=== PATIENT | male | born 1960 | race Caucasian/White ===

== ENCOUNTER → 2016-04-06 | Outpatient (CLI) | payer BC, OTHER ==
[~2016-04-06] MED LIST: AMLO-114 PO; KFZAV1 IV
[2016-04-06 18:20] LABS: HEMATOCRIT 41.1 % (42-52); MEAN CELL VOLUME 93.6 fL (80-100); MEAN CORPUSCULAR HEMOGLOBIN 30.8 pg (25-34); MEAN CORPUSCULAR HGB CONC 32.8 g/dl (32-36); MEAN PLATELET VOLUME 10.2 fL (7.4-10.4); PLATELET COUNT 288 K/uL (130-400); RED BLOOD COUNT 4.39 M/uL (4.7-6.1); WHITE BLOOD COUNT 6.52 K/uL (4.8-10.8)
[2016-04-06 18:43] LABS: ALT/SGPT 34 U/L (12-78); BLOOD UREA NITROGEN 18 mg/dl (7-18); BUN/CREATININE RATIO 22.3 (10-20); CALCIUM 9.1 mg/dl (8.5-10.1); CARBON DIOXIDE 28 mmol/L (21-32); CHLORIDE 103 mmol/L (98-107); CREATININE 0.81 mg/dl (0.60-1.40); GLUCOSE 76 mg/dl (70-99); POTASSIUM 4.3 mmol/L (3.5-5.1); SODIUM 142 mmol/L (136-145)
[2016-04-06 18:46] LABS: ALB/GLOB RATIO 0.9 (0.9-2); ALKALINE PHOSPHATASE 60 U/L (45-117); AST/SGOT 18 U/L (15-37)
== END | disposition home or self-care (01) ==
LOC: C.LABSPEC 17:52
PROVIDERS: ATTEND Orthopaedic Surgery
DX: M86.461 Chronic osteomyelitis with draining sinus, right tibia and fibula (principal)

== ENCOUNTER → 2016-04-12 | Outpatient (CLI) | payer BC, OTHER ==
[2016-04-12 17:53] LABS: BASO % 0.5 %; BASO ABS # 0.03 K/uL (0-0.2); COMPLETE YES; EOS % 5.5 %; HEMATOCRIT 39.8 % (42-52); IG% 0.2 %; LYMPH % 18.6 %; LYMPH ABS # 1.16 K/uL (1.2-3.4); MEAN CELL VOLUME 93.2 fL (80-100); MEAN CORPUSCULAR HEMOGLOBIN 30.2 pg (25-34); MEAN CORPUSCULAR HGB CONC 32.4 g/dl (32-36); MEAN PLATELET VOLUME 10.4 fL (7.4-10.4); MONO % 10.3 %; NEUT % 64.9 %; PLATELET COUNT 267 K/uL (130-400); RED BLOOD COUNT 4.27 M/uL (4.7-6.1); WHITE BLOOD COUNT 6.23 K/uL (4.8-10.8)
[2016-04-12 19:17] LABS: ALKALINE PHOSPHATASE 54 U/L (45-117); ALT/SGPT 29 U/L (12-78); AST/SGOT 19 U/L (15-37); BLOOD UREA NITROGEN 15 mg/dl (7-18); BUN/CREATININE RATIO 17.6 (10-20); CALCIUM 8.8 mg/dl (8.5-10.1); CARBON DIOXIDE 29 mmol/L (21-32); CHLORIDE 102 mmol/L (98-107); CREATININE 0.86 mg/dl (0.60-1.40); GLUCOSE 120 mg/dl (70-99); POTASSIUM 3.9 mmol/L (3.5-5.1); SODIUM 140 mmol/L (136-145)
[2016-04-12 19:20] LABS: C-REACTIVE PROTEIN 0.98 mg/dl (0-0.29)
== END | disposition home or self-care (01) ==
LOC: C.LABSPEC 09:32
PROVIDERS: ATTEND Internal Medicine Infectious Disease
DX: T84.69XA Infection and inflammatory reaction due to internal fixation device of other site, initial encounter (principal); X58.XXXA Exposure to other specified factors, initial encounter

== ENCOUNTER → 2016-04-19 | Outpatient (CLI) | payer BC, OTHER ==
[2016-04-19 12:32] LABS: BASO % 0.6 %; BASO ABS # 0.04 K/uL (0-0.2); COMPLETE YES; EOS % 6.8 %; HEMATOCRIT 43.4 % (42-52); IG% 0.2 %; LYMPH % 23.7 %; LYMPH ABS # 1.51 K/uL (1.2-3.4); MEAN CELL VOLUME 93.7 fL (80-100); MEAN CORPUSCULAR HEMOGLOBIN 30.5 pg (25-34); MEAN CORPUSCULAR HGB CONC 32.5 g/dl (32-36); MONO % 11.9 %; NEUT % 56.8 %; PLATELET COUNT 252 K/uL (130-400); RED BLOOD COUNT 4.63 M/uL (4.7-6.1); WHITE BLOOD COUNT 6.37 K/uL (4.8-10.8)
[2016-04-19 13:00] LABS: ALB/GLOB RATIO 0.9 (0.9-2); ALKALINE PHOSPHATASE 63 U/L (45-117); ALT/SGPT 21 U/L (12-78); AST/SGOT 26 U/L (15-37); BLOOD UREA NITROGEN 16 mg/dl (7-18); BUN/CREATININE RATIO 18.7 (10-20); C-REACTIVE PROTEIN 0.98 mg/dl (0-0.29); CALCIUM 8.7 mg/dl (8.5-10.1); CARBON DIOXIDE 30 mmol/L (21-32); CHLORIDE 103 mmol/L (98-107); CREATININE 0.83 mg/dl (0.60-1.40); GLUCOSE 83 mg/dl (70-99); SODIUM 140 mmol/L (136-145)
== END | disposition home or self-care (01) ==
LOC: C.LABSPEC 12:07
PROVIDERS: ATTEND Internal Medicine Infectious Disease
DX: T84.69XA Infection and inflammatory reaction due to internal fixation device of other site, initial encounter (principal); X58.XXXA Exposure to other specified factors, initial encounter

== ENCOUNTER → 2016-04-27 | Outpatient (CLI) | payer BC, OTHER ==
[2016-04-27 17:32] LABS: BASO % 0.6 %; BASO ABS # 0.03 K/uL (0-0.2); COMPLETE YES; EOS % 6.8 %; HEMATOCRIT 40.7 % (42-52); IG% 0.2 %; LYMPH % 20.8 %; LYMPH ABS # 1.01 K/uL (1.2-3.4); MEAN CELL VOLUME 94.4 fL (80-100); MEAN CORPUSCULAR HEMOGLOBIN 30.2 pg (25-34); MEAN CORPUSCULAR HGB CONC 31.9 g/dl (32-36); MEAN PLATELET VOLUME 10.3 fL (7.4-10.4); MONO % 12.4 %; NEUT % 59.2 %; PLATELET COUNT 197 K/uL (130-400); RED BLOOD COUNT 4.31 M/uL (4.7-6.1); WHITE BLOOD COUNT 4.85 K/uL (4.8-10.8)
[2016-04-27 18:06] LABS: ALB/GLOB RATIO 0.9 (0.9-2); ALKALINE PHOSPHATASE 60 U/L (45-117); ALT/SGPT 22 U/L (12-78); AST/SGOT 23 U/L (15-37); BLOOD UREA NITROGEN 15 mg/dl (7-18); BUN/CREATININE RATIO 17.9 (10-20); C-REACTIVE PROTEIN 1.14 mg/dl (0-0.29); CARBON DIOXIDE 32 mmol/L (21-32); CHLORIDE 104 mmol/L (98-107); CREATININE 0.82 mg/dl (0.60-1.40); GLUCOSE 107 mg/dl (70-99); POTASSIUM 4.1 mmol/L (3.5-5.1); SODIUM 142 mmol/L (136-145)
== END | disposition home or self-care (01) ==
LOC: C.LABSPEC 07:43
PROVIDERS: ATTEND Internal Medicine Infectious Disease
DX: T84.69XA Infection and inflammatory reaction due to internal fixation device of other site, initial encounter (principal); Y83.1 Surgical operation with implant of artificial internal device as the cause of abnormal reaction of the patient, or of later complication, without mention of misadventure at the time of the procedure

== ENCOUNTER 2016-05-03 13:08 | Emergency (ER) | payer BC ==
[~2016-05-03] VITALS: Ht 177.8 cm; Wt 174.5 kg
[2016-05-03 13:10] VITALS: TEMP 36.6; Ht 177.8 cm; Wt 174.5 kg
[2016-05-03] MEDS ORDERED: KFZAV1 IV (13:45)
--- NOTE | 2016-05-03 13:52 | EMERGENCY ROOM VISIT NOTE ---
History Report prepared by Yung: Aleksandar Fletcher Under the Supervision of: Dr. Jay Romero M.D. First contact with patient: 13:43 Chief Complaint: HYPERTENSION Stated Complaint: HIGH BLOOD PRESSURE History of Present Illness The patient is a 55 year old male who presents to the Emergency Room with complaints of acute hypertension. The patient had his blood pressure checked at home by a nurse, who told him to come to the ED for hypertension. The patient otherwise feels completely fine and denies fevers, headaches, chest pain, shortness of breath, burning with urination, or diarrhea. The patient does not take medications for hypertension. He is currently on Ancef for a right lower leg infection. The patient has a PICC line. The patient has not been taking any Pseudafed. He is not a smoker. Source of History: patient Onset: today Position: other (cardiovascular) Quality: other (hypertensive) Timing: other (acute) Associated Symptoms: No SOB, No chest pain, No diarrhea, No fevers, No headache, No urinary symptoms Review of Systems See HPI for pertinent positives & negatives. A total of 10 systems reviewed and were otherwise negative. Past Medical & Surgical Medical Problems: (1) Peripherally inserted central catheter in place Family History No pertinent family history Social History Smoking Status: Former Smoker Current/Historical Medications Scheduled Amlodipine (Norvasc), 10 MG PO DAILY Cefazolin Sod (Cefazolin Sodium), 2 GM IV TID Allergies Uncoded Allergies: PENICILIN (Allergy, Unknown, 04/05/04) Physical Exam Vital Signs Date Time Temp Pulse Resp B/P Pulse Ox O2 Delivery O2 Flow Rate FiO2 05/03/16 15:18 82 20 122/76 95 05/03/16 14:17 84 22 140/91 96 Room Air 05/03/16 13:10 36.6 91 18 199/101 95 Room Air Physical Exam GENERAL: Patient is overweight appearing and in no acute distress. HEENT: No acute trauma, normocephalic atraumatic, mucous membranes moist, no nasal congestion, no scleral icterus. NECK: No stridor, no adenopathy, no meningismus, trachea is midline. LUNGS: No dyspnea. Clear to auscultation and equal bilaterally. No wheeze, no rhonchi. HEART: Regular rate and rhythm. No murmurs, rubs, gallops appreciated. ABDOMEN: Soft, nontender, bowel sounds positive, no masses appreciated, no peritonitis. BACK: No midline tenderness, no CVA tenderness EXTREMITIES: Normal motion all extremities, no cyanosis, no edema. PICC line right arm with no evidence of infection or effusion. Right leg wound dressing with bilateral leg edema. NEUROLOGIC: Alert and oriented, no acute motor or sensory deficits, no focal weakness, cranial nerves grossly intact. SKIN: No rash, no jaundice, no diaphoresis. Medical Decision & Procedures ER Provider Diagnostic Interpretation: X ray results are stated below per my interpretation and the radiologist's interpretation. SINGLE VIEW CHEST CLINICAL HISTORY: Hypertension. FINDINGS: An AP, portable, upright chest radiograph is obtained. No prior studies are available for comparison at the time of dictation. The examination is degraded by portable technique, apical positioning, large body habitus. A right PICC line is in place. The tip of the catheter projects over the SVC. The heart is top normal for projection. The pulmonary vasculature is noncongested. The lungs and pleural spaces are clear. No pneumothorax is seen. The bony thorax is grossly intact. IMPRESSION: 1. No acute cardiopulmonary abnormality. 2. A right PICC line is in place. Electronically signed by: Sunil Collado M.D. 05/03/2016 2:22 PM Dictated Date/Time: 05/03/2016 2:13 PM Laboratory Results 05/03/16 13:25 05/03/16 13:25 Test 05/03/16 13:25 Red Blood Count 4.53 M/uL (4.7-6.1) Mean Corpuscular Volume 93.8 fL (80-100) Mean Corpuscular Hemoglobin 31.1 pg (25-34) Mean Corpuscular Hemoglobin Concent 33.2 g/dl (32-36) RDW Standard Deviation 47.9 fL (36.4-46.3) RDW Coefficient of Variation 14.0 % (11.5-14.5) Mean Platelet Volume 9.7 fL (7.4-10.4) Anion Gap 6.0 mmol/L (3-11) Est Creatinine Clear Calc Drug Dose 167.5 ml/min Estimated GFR () 116.8 Estimated GFR (Non- 100.8 BUN/Creatinine Ratio 21.7 (10-20) Calcium Level 8.6 mg/dl (8.5-10.1) Troponin I < 0.015 ng/ml (0-0.045) Laboratory results as reviewed by me. Medications Administered Medications (Trade) Dose Ordered Sig/Bee Route Start Time Stop Time Status Last Admin Dose Admin Amlodipine Besylate (Norvasc Tab) 10 mg NOW ONCE PO 05/03/16 14:15 05/03/16 14:16 DC 05/03/16 14:24 10 MG ECG Indication: other (hypertension) Rate (beats per minute): 80 Rhythm: normal sinus Findings: no acute ischemic change, no ectopy ED Course 1344: The patient was evaluated in room B10. A complete history and physical exam was performed. 1415; Norvasc 10 mg PO. 1442: The patient is feeling fine. BP 140/90. 1540: The patient is feeling fine and would like to go home. Medical Decision Differential: Benign Hypertension, Hypertensive Urgency/Emergency, Cardiovascular Pathology, Endocrine, Metabolic/Electrolyte, Renal Disease, End- organ Damage, amongst other pathologies entertained. Pleasant 55 yr old male [place] who will be here for next 1 -2 months. Currently being treated for right leg cellulitis with IV Ancef. Admits BP has been trending up over last few doc vitis. Labs look good, EKG OK, CXR Clear and he is feeling well. BP trending down. No evidence of renal issues, acs, nor other acute findings. GIven Norvasc and tolerating well. BP improved at discharge. Will start outpatient BP meds given no PCP in area. Discussed risks of meds and side effects. Aware RTED at any time if worsening or other concerns. Impression Primary Impression: Hypertension Scribe Attestation The scribe's documentation has been prepared under my direction and personally reviewed by me in its entirety. I confirm that the note above accurately reflects all work, treatment, procedures, and medical decision making performed by me. Departure Information Dispostion Home / Self-Care Prescriptions Amlodipine (Norvasc) 10 Mg Tab 10 MG PO DAILY, #30 TAB 5 Refills Prov: Jay Romero M.D. 05/03/16 Referrals No Doctor, Assigned (PCP) Forms HOME CARE DOCUMENTATION FORM, IMPORTANT VISIT INFORMATION, WORK / SCHOOL INSTRUCTIONS Patient Instructions ED Hypertension [place] Tx, My [facility] Health Problem Qualifiers Primary Impression: Hypertension Hypertension type: unspecified secondary hypertension Qualified Codes: I15.9 - Secondary hypertension, unspecified
[2016-05-03 13:57] LABS: HEMATOCRIT 42.5 % (42-52); MEAN CELL VOLUME 93.8 fL (80-100); MEAN CORPUSCULAR HEMOGLOBIN 31.1 pg (25-34); MEAN CORPUSCULAR HGB CONC 33.2 g/dl (32-36); MEAN PLATELET VOLUME 9.7 fL (7.4-10.4); PLATELET COUNT 226 K/uL (130-400); RED BLOOD COUNT 4.53 M/uL (4.7-6.1); WHITE BLOOD COUNT 5.29 K/uL (4.8-10.8)
[2016-05-03 14:04] LABS: BLOOD UREA NITROGEN 18 mg/dl (7-18); BUN/CREATININE RATIO 21.7 (10-20); CALCIUM 8.6 mg/dl (8.5-10.1); CARBON DIOXIDE 29 mmol/L (21-32); CHLORIDE 105 mmol/L (98-107); CREATININE 0.81 mg/dl (0.60-1.40); GLUCOSE 105 mg/dl (70-99); POTASSIUM 4.2 mmol/L (3.5-5.1); SODIUM 140 mmol/L (136-145)
[2016-05-03] MEDS ORDERED: LABETALOL HCL IV 5 MG/ML 20ML IV STA (14:11)
[2016-05-03] MEDS ORDERED: AMLODIPINE BESYLATE 5 MG TAB PO ONE (14:15)
--- NOTE | 2016-05-03 14:23 | DIAGNOSTIC IMAGING REPORT ---
SINGLE VIEW CHEST CLINICAL HISTORY: Hypertension. FINDINGS: An AP, portable, upright chest radiograph is obtained. No prior studies are available for comparison at the time of dictation. The examination is degraded by portable technique, apical positioning, large body habitus. A right PICC line is in place. The tip of the catheter projects over the SVC. The heart is top normal for projection. The pulmonary vasculature is noncongested. The lungs and pleural spaces are clear. No pneumothorax is seen. The bony thorax is grossly intact. IMPRESSION: 1. No acute cardiopulmonary abnormality. 2. A right PICC line is in place. Electronically signed by: Sunil Collado M.D. 05/03/2016 2:22 PM Dictated Date/Time: 05/03/2016 2:13 PM
[2016-05-03] MEDS ORDERED: AMLO-114 PO (14:55)
[2016-05-03 15:18] VITALS: BP 122/76; PULSE 82; O2SAT 95
== END 2016-05-03 15:19 | disposition home or self-care (01) ==
LOC: C.EDB 13:10
DX: I15.9 Secondary hypertension, unspecified (principal); R60.0 Localized edema; E66.3 Overweight; Z87.891 Personal history of nicotine dependence; Z95.9 Presence of cardiac and vascular implant and graft, unspecified

== ENCOUNTER → 2016-05-03 | Outpatient (CLI) | payer BC, OTHER ==
[2016-05-03 17:50] LABS: BASO % 0.7 %; BASO ABS # 0.04 K/uL (0-0.2); COMPLETE YES; EOS % 7.6 %; HEMATOCRIT 41.5 % (42-52); IG% 0.4 %; LYMPH % 23.8 %; LYMPH ABS # 1.28 K/uL (1.2-3.4); MEAN CELL VOLUME 93.3 fL (80-100); MEAN CORPUSCULAR HEMOGLOBIN 30.1 pg (25-34); MEAN CORPUSCULAR HGB CONC 32.3 g/dl (32-36); MEAN PLATELET VOLUME 10.2 fL (7.4-10.4); MONO % 14.3 %; NEUT % 53.2 %; PLATELET COUNT 206 K/uL (130-400); RED BLOOD COUNT 4.45 M/uL (4.7-6.1); WHITE BLOOD COUNT 5.38 K/uL (4.8-10.8)
[2016-05-03 18:32] LABS: ALT/SGPT 21 U/L (12-78); AST/SGOT 19 U/L (15-37); BLOOD UREA NITROGEN 16 mg/dl (7-18); BUN/CREATININE RATIO 19.2 (10-20); CALCIUM 8.3 mg/dl (8.5-10.1); CARBON DIOXIDE 32 mmol/L (21-32); CHLORIDE 104 mmol/L (98-107); CREATININE 0.86 mg/dl (0.60-1.40); GLUCOSE 92 mg/dl (70-99); POTASSIUM 4.3 mmol/L (3.5-5.1); SODIUM 140 mmol/L (136-145)
[2016-05-03 18:35] LABS: ALB/GLOB RATIO 0.9 (0.9-2); ALKALINE PHOSPHATASE 62 U/L (45-117); C-REACTIVE PROTEIN 0.77 mg/dl (0-0.29)
== END | disposition home or self-care (01) ==
LOC: C.LABSPEC 07:53
PROVIDERS: ATTEND Internal Medicine Infectious Disease
DX: T84.69XA Infection and inflammatory reaction due to internal fixation device of other site, initial encounter (principal); X58.XXXA Exposure to other specified factors, initial encounter